=== PATIENT | male | born 2000 | race Caucasian/White ===

== ENCOUNTER 2022-04-28 15:03 | Outpatient (CLI) | payer OTHER ==
--- NOTE | 2022-04-29 09:10 | MRI Report ---
PROCEDURE: KNEE WO - RT INDICATIONS: LEG INJURY TECHNIQUE: Noncontrast sagittal PD fast spin echo and T2 fast spin echo with fat saturation, sagittal 3-D spoile d GE with fat saturation; coronal T1 spin echo and PD fast spin echo with fat saturation, and axial P D fast spin echo with fat saturation through the knee. COMPARISON: None. FINDINGS: Image quality: Excellent. Anterior cruciate ligament: Intact. Posterior cruciate ligament: Intact. Medial collateral ligament: Intact. Lateral collateral ligament: Intact. Medial meniscus: Intact. Lateral meniscus: Intact. Medial and lateral tendons: The semimembranosus tendon insertions appear intact. Visualized portion s of the pes anserinus tendons appear normal. The popliteus tendon appears intact. Iliotibial band appears normal. Anterior structures: The quadriceps and patellar tendons appear intact. Patellar alignment is diana l. No femoral trochlear dysplasia or ventral trochlear prominence. No edema in the infrapatellar fa t pad. Bones: There is prominent osseous edema within the patella. Linear hypointense fracture lines are se en within the lateral portion of the patella oriented in a longitudinal fashion with involvement of t he articular surface at the lateral patellar facet. There is minimal 1 mm step-off at the lateral pat ellar facet articular surface. Medial femorotibial cartilage: Intact. Lateral femorotibial cartilage: Intact. Patellofemoral cartilage: Full-thickness cartilage fissuring is seen at the lateral patellar facet a t the fracture site. Soft tissues: There is a small joint effusion. There is a trace medial popliteal cyst. The musculat ure surrounding the knee is normal in bulk. IMPRESSION: 1.Comminuted nondisplaced longitudinal fracture at the lateral aspect of the patella. There is extens ion to the articular surface at the lateral patellar facet with approximately 1 mm osseous scapula an d overlying cartilage fissuring. 2.Small joint effusion. 3.Cruciate and collateral ligaments are intact. No meniscal tear is seen. Reviewed by: Felipe Nava MD on 04/29/2022 9:08 AM PDT Approved by: Felipe Nava MD on 04/29/2022 9:08 AM PDT Station ID: [id number]
== END 2022-04-28 15:04 | disposition home or self-care (01) ==
LOC: DI 15:03
PROVIDERS: ATTEND Pediatrics Pediatric Emergency Medicine
DX: S82.024A Nondisplaced longitudinal fracture of right patella, initial encounter for closed fracture (principal); M25.461 Effusion, right knee

== ENCOUNTER 2023-09-06 14:18 | Outpatient (CLI) | payer OTHER | END 2023-09-06 23:59 | disposition critical access hospital (66) | LOC: EMS 14:18 | DX: R55 Syncope and collapse (principal); R30.9 Painful micturition, unspecified; R42 Dizziness and giddiness; R03.1 Nonspecific low blood-pressure reading | CPT/HCPCS: A0425; A0427 ==

== ENCOUNTER 2023-09-06 14:43 | Emergency (ER) | payer OTHER ==
[2023-09-06 15:10] VITALS: O2SAT 100
--- NOTE | 2023-09-06 15:26 | ED Physician Documentation ---
PD HPI SYNCOPE - Stated complaint Stated Complaint: NEAR SYNCOPE - Chief complaint Chief Complaint: Neuro - History obtained from History obtained from: Patient - Additional information Additional information: 23 YO MALE GENERALLY HEALTHY. TAKES OMEPRAZOLE ON OCCASION. AT WORK TODAY, STANDING, FELT A BURNING IN HIS URETHRA, "LIKE I PASSED SOMETHING." THEN BEMACE VERY LIGHTHEADED AND TUNNEL VISION. DID NOT LOSE CONSCIOUSNESS. LASTED 3-4 MINUTES. nOW BETTER EXCEPT FEELS V THIRSTY. NO SOA/CP PD PAST MEDICAL HISTORY - Past Medical History Past Medical History: No - Past Surgical History Past Surgical History: No - Present Medications Home Medications: Ambulatory Orders Medication Instructions Recorded Confirmed No Known Home Medications 09/06/23 09/06/23 - Allergies Allergies/Adverse Reactions: Allergies Allergy/AdvReac Type Severity Reaction Status Date / Time No Known Drug Allergies Allergy Verified 09/06/23 14:50 - Social History Does the pt smoke?: No Smoking Status: Never smoker PD ED PE NORMAL - Vitals Vital signs reviewed: Yes - General General: Alert and oriented X 3, No acute distress - HEENT HEENT: PERRL, EOMI, Pharynx benign - Neck Neck: Supple, no meningeal sign, No bony TTP - Cardiac Cardiac: RRR, No murmur - Respiratory Respiratory: No respiratory distress, Clear bilaterally - Abdomen Abdomen: Non tender - Derm Derm: Normal color, Warm and dry - Neuro Neuro: Alert and oriented X 3, Normal speech Eye Opening: Spontaneous Motor: Obeys Commands Verbal: Oriented GCS Score: 15 Results - Vitals Vitals: Vital Signs - 24 hr 09/06/23 09/06/23 14:48 16:25 Temperature 36.5 C 37.1 C Heart Rate 88 89 Respiratory 16 16 Rate Blood Pressure 113/72 109/66 O2 Saturation 100 100 Oxygen O2 Source Room air - EKG (time done) 1540 EKG releavant findings:: EKG personally interpreted by author of this note. Relevant findings are: Rate: Rate (enter#) (72) Rhythm: NSR [place]: Normal Intervals: Normal LA QRS: Normal Ischemia: Non specific changes - Labs Labs: Laboratory Tests 09/06/23 09/06/23 09/06/23 15:30 15:30 16:00 WBC 6.9 RBC 5.09 Hgb 14.6 Hct 43.5 MCV 85.5 MCH 28.7 MCHC 33.6 RDW 12.3 Plt Count 176 MPV 9.8 Neut # (Auto) 5.0 Lymph # (Auto) 1.3 L [place] # (Auto) 0.4 Eos # (Auto) 0.1 Baso # (Auto) 0.0 Absolute Nucleated RBC 0.00 Nucleated RBC % 0.0 Sodium 138 Potassium 3.5 Chloride 104 Carbon Dioxide 26 Anion Gap 8.0 BUN 20 Creatinine 0.8 Estimated GFR (MDRD) 122 Glucose 103 Calcium 9.5 Total Bilirubin 0.6 AST 22 ALT 16 Alkaline Phosphatase 63 Total Protein 7.1 Albumin 4.6 Globulin 2.5 Albumin/Globulin Ratio 1.8 Urine Color YELLOW Urine Clarity CLEAR Urine pH 7.0 Ur Specific [place] 1.010 Urine Protein NEGATIVE Urine Glucose (UA) NEGATIVE Urine Ketones NEGATIVE Urine Occult Blood NEGATIVE Urine Nitrite NEGATIVE Urine Bilirubin NEGATIVE Urine Urobilinogen 0.2 (NORMAL) Ur Leukocyte Esterase NEGATIVE Ur Microscopic Review NOT INDICATED Urine Culture Comments NOT INDICATED PD Medical Decision Making - ED course ED course: 23-year-old gentleman with near syncope, it was preceded by a strange feeling and hear his urethra so presume vasovagal presyncope. Workup in the emergency department demonstrated a EKG without long QT, findings of WPW etc. CBC, CMP, and urinalysis were normal. STD testing pending on discharge. Departure - Departure Disposition: 01 Home, Self Care Clinical Impression: Near syncope Condition: Good Record reviewed to determine appropriate education?: Yes Instructions: ED Near Syncope Vasovagal Comments: Blood work is normal today, no sign of diabetes, electrolyte imbalance, kidney or liver dysfunction. Your urinalysis is also normal. Given the symptoms you are having I did send off STD tests, and we will call you if they are positive. Call your doctor to arrange a follow-up appointment, make the next available appointment. In the interim, return anytime if worse or if new symptoms develop. Forms: PCP List Discharge Date/Time: 09/06/23 16:27
[2023-09-06 15:34] LABS: BASOPHILS % (AUTO) 0.4 %; EOSINOPHILS # (AUTO) 0.1 10^3/uL (0.0-0.7); EOSINOPHILS % (AUTO) 1.9 %; HCT - HEMATOCRIT 43.5 % (42.0-52.0); HGB - HEMOGLOBIN 14.6 g/dL (14.0-18.0); LYMPHOCYTES # (AUTO) 1.3 10^3/uL (1.5-3.5); LYMPHOCYTES % (AUTO) 19.5 %; MEAN CORPUSCULAR HEMOGLOBIN 28.7 pg (27.0-31.0); MEAN CORPUSCULAR HGB CONC 33.6 g/dL (32.0-36.0); MEAN CORPUSCULAR VOLUME 85.5 fL (80.0-94.0); MEAN PLATELET VOLUME 9.8 fL (7.4-11.4); MONOCYTES # (AUTO) 0.4 10^3/uL (0.0-1.0); MONOCYTES % (AUTO) 5.4 %; NEUTROPHILS % (AUTO) 72.5 %; PLT - PLATELET COUNT 176 10^3/uL (130-450); RED BLOOD COUNT 5.09 10^6/uL (4.70-6.10); RED CELL DISTRIBUTION WIDTH 12.3 % (12.0-15.0); WHITE BLOOD COUNT 6.9 x10^3/uL (4.8-10.8)
[2023-09-06] MEDS: SODIUM CHLORIDE 0.9% 1,000 ML IV STA (15:39)
[2023-09-06 15:53] LABS: ALBUMIN 4.6 g/dL (3.2-5.5); ALBUMIN/GLOBULIN RATIO 1.8 (1.0-2.2); BILIRUBIN,TOTAL 0.6 mg/dL (0.2-1.0); CALCIUM 9.5 mg/dL (8.5-10.3); CREATININE 0.8 mg/dL (0.6-1.3); POTASSIUM 3.5 mmol/L (3.5-4.5); TOTAL PROTEIN 7.1 g/dL (6.4-8.9)
[2023-09-06 16:04] LABS: BILIRUBIN,URINE NEGATIVE (NEGATIVE); GLUCOSE, URINE (UA) NEGATIVE (NEGATIVE); KETONES,URINE (UA) NEGATIVE (NEGATIVE); LEUKOCYTE ESTERASE, URINE NEGATIVE (NEGATIVE); NITRITE,URINE NEGATIVE (NEGATIVE); OCCULT BLOOD,URINE NEGATIVE (NEGATIVE); PROTEIN,URINE NEGATIVE (NEGATIVE); UROBILINOGEN,URINE 0.2 (NORMAL) E.U./dL (NORMAL)
[2023-09-06 16:05] LABS: CLARITY,URINE CLEAR (CLEAR)
[2023-09-06] MEDS: ACETAMINOPHEN 500 MG TABLET PO STA (16:16)
[2023-09-06 16:28] VITALS: BP 109/66
[2023-09-06 18:41] LABS: CHLAMYDIA TRACHOMATIS DNA NEGATIVE (NEGATIVE); NEISSERIA GONORRHOEAE DNA NEGATIVE (NEGATIVE); TRICHOMONAS VAGINALIS DNA NEGATIVE (NEGATIVE)
== END 2023-09-06 16:27 | disposition home or self-care (01) ==
LOC: EDUNIT# → ED 14:43
DX: R55 Syncope and collapse (principal)
CPT/HCPCS: 36415; 80053; 81001; 81003; 85025; 87086; 87491; 87591; 87661; 93005; 99283; 99284